=== PATIENT | female | born 1980 | race Caucasian/White ===

== ENCOUNTER → 2022-03-05 14:51 | Outpatient (BNVA) | payer OTHER, SELFPAY | PROVIDERS: PCP Internal Medicine; Visit Provider Nurse Practitioner Family | DX: G47.19 Other hypersomnia (principal); R06.83 Snoring; R06.81 Apnea, not elsewhere classified | CPT/HCPCS: 99202 ==

== ENCOUNTER → 2022-03-16 10:03 | Outpatient (REF) | payer OTHER, SELFPAY | LOC: HO.SL 10:03 | PROVIDERS: PCP Internal Medicine; Visit Provider Nurse Practitioner Family | DX: G47.33 Obstructive sleep apnea (adult) (pediatric) (principal) | CPT/HCPCS: 95806 ==

== ENCOUNTER → 2022-05-06 07:50 | Outpatient (BNVA) | payer OTHER, SELFPAY | PROVIDERS: PCP Internal Medicine; Visit Provider Nurse Practitioner Family | DX: G47.33 Obstructive sleep apnea (adult) (pediatric) (principal); Z99.89 Dependence on other enabling machines and devices | CPT/HCPCS: 99212 ==

== ENCOUNTER 2022-05-11 11:32 | Outpatient (REF) | payer OTHER, SELFPAY ==
--- NOTE | ~2022-05-11 | US_ITS ---
EXAMINATION: US ABDOMEN COMPLETE CLINICAL INFORMATION: Right upper quadrant pain. COMPARISON: None. TECHNIQUE: Real-time imaging of the abdominal viscera. FINDINGS: PANCREAS: Normal. ABDOMINAL AORTA: The proximal, mid, and distal segments are normal in caliber. INFERIOR VENA CAVA: Visualized portions are normal. LIVER: The liver is normal in size. The liver contour is normal. There is increased liver echogenicity. There is focal fatty sparing. There is anechoic mass measuring 1.0 x 1.2 x 1.1 cm, nonvascular. There is an anechoic slightly lobulated cyst in the right hepatic lobe measuring 2.5 cm. There is no intrahepatic biliary duct dilatation seen. GALLBLADDER: The gallbladder is physiologically distended. Multiple mobile gallstones are present. No evidence of gallbladder wall thickening or pericholecystic fluid. COMMON BILE DUCT: Normal in caliber measuring 0.3 cm in diameter. RIGHT KIDNEY: There is an anechoic cyst mid to lower pole measuring 3.0 x 1.9 x 2.0 cm. No hydronephrosis or renal calculi. The kidney measures 13.2 cm in maximum dimension. LEFT KIDNEY: There is an anechoic cyst lower pole measuring 2.0 x 2.1 x 2.1 cm. No hydronephrosis or renal calculi. The kidney measures 12.6 cm in maximum dimension. SPLEEN: Normal. The spleen measures 10.2 cm in maximum dimension. FREE FLUID: None. US/US abdomen complete IMPRESSION: Hepatic steatosis with focal fatty sparing. There is a hypoechoic mass in the right hepatic lobe measuring 1.2 cm. Question hemangioma. Recommend further evaluation with CT with and without contrast. There is a simple cyst in the right lobe. Bilateral renal cysts. No echogenic stones or hydronephrosis. The rest of the abdominal ultrasound is unremarkable.
== END 2022-05-11 11:33 | disposition home or self-care (01) ==
LOC: HO.HMGCX 11:32
PROVIDERS: PCP Internal Medicine; Visit Provider Internal Medicine
DX: R10.11 Right upper quadrant pain (principal)
CPT/HCPCS: 76700

== ENCOUNTER → 2022-05-19 14:50 | Outpatient (BNVA) | payer OTHER, SELFPAY | PROVIDERS: PCP Internal Medicine; Visit Provider Surgery | DX: K80.20 Calculus of gallbladder without cholecystitis without obstruction (principal); R07.81 Pleurodynia; E66.01 Morbid (severe) obesity due to excess calories; Z68.39 Body mass index [BMI] 39.0-39.9, adult | CPT/HCPCS: 99202 ==

== ENCOUNTER 2022-06-02 15:17 | Outpatient (REF) | payer OTHER, SELFPAY ==
--- NOTE | ~2022-06-02 | CT_ITS ---
EXAMINATION: CT ABDOMEN WITHOUT AND WITH CONTRAST CLINICAL INFORMATION: Hepatomegaly. Liver lesion. COMPARISON: Abdominal ultrasound 05/11/2022. TECHNIQUE: Contiguous axial thin section helical images of the abdomen were performed before and after the administration of 85 mL of Omnipaque 350 intravenous contrast. The data set was reformatted in the coronal and sagittal planes and reviewed on an independent workstation. This CT examination was performed using dose optimization techniques as appropriate, variously including the following: *Automated exposure control *Adjustment of mA and/or kV according to patient size (this includes techniques or standardized protocols for targeted exams where dose is matched to indication/reason for exam; i.e. extremities or head) *Use of iterative reconstruction technique DLP: 991 mGy-cm FINDINGS: LUNG BASES: No suspicious lung nodules. LIVER, GALLBLADDER, AND BILIARY TREE: The mass seen on ultrasound is vaguely seen on noncontrast imaging as a slightly hypoattenuating mass with attenuation of 28 HU. There is respiratory motion artifact on the arterial phase imaging. The mass is not seen on arterial or venous phase imaging and therefore cannot be characterized. There is a cyst in segment 6. No biliary ductal dilatation. Cholelithiasis. PANCREAS: No pancreatic mass. SPLEEN: Normal. ADRENAL GLANDS AND KIDNEYS: No adrenal mass. The kidneys have symmetric cortical and medullary nephrograms. There are simple cysts in both kidneys. One endophytic low-attenuation lesion in the right kidney is difficult to characterize by CT but is a simple cyst by recent ultrasound. No nephrolithiasis or hydronephrosis. BOWEL LOOPS: Included bowel is unremarkable. LYMPH NODES: No adenopathy. VASCULAR: No aortic aneurysm. Mild iliac atherosclerosis. BONES: No suspicious osseous lesions. CT/CT abdomen wo/w IV con IMPRESSION: The liver lesion seen on abdominal ultrasound is not characterized by CT. Recommend further evaluation with MRI of the abdomen without and with contrast. Fleischner guidelines were followed.
[2022-06-02] MEDS: iohexoL 350 MG/ML 100 ML INFUS..BTL 85 ML IV (15:58)
== END 2022-06-02 15:18 | disposition home or self-care (01) ==
LOC: HO.CT 15:17
PROVIDERS: PCP Internal Medicine; Visit Provider Internal Medicine
DX: R16.0 Hepatomegaly, not elsewhere classified (principal)
CPT/HCPCS: 74170; Q9967

== ENCOUNTER → 2022-07-05 14:58 | Outpatient (BNVA) | payer OTHER, SELFPAY | PROVIDERS: PCP Internal Medicine; Visit Provider Surgery | DX: K80.20 Calculus of gallbladder without cholecystitis without obstruction (principal); R07.81 Pleurodynia | CPT/HCPCS: 99212 ==

== ENCOUNTER → 2022-10-04 14:45 | Outpatient (BNVA) | payer OTHER, SELFPAY | PROVIDERS: PCP Internal Medicine; Visit Provider Surgery | DX: R10.11 Right upper quadrant pain (principal); R07.81 Pleurodynia; K80.20 Calculus of gallbladder without cholecystitis without obstruction; E66.01 Morbid (severe) obesity due to excess calories; Z68.34 Body mass index [BMI] 34.0-34.9, adult | CPT/HCPCS: 99212 ==